=== PATIENT | male | born 1965 | race Caucasian/White ===

== ENCOUNTER 2022-10-31 11:23 | Emergency (ER) | payer SELFPAY ==
[2022-10-31] MEDS ORDERED: Sodium Chloride 0.9% 10 ML Syringe FLUSH PRN (11:31)
[2022-10-31 11:49] LABS: BASOPHILS ABSOLUTE AUTO 0.04 K/mm3 (0.01-0.08); BASOPHILS PERCENT AUTO 0.5 % (0.1-1.2); EOSINOPHILS ABSOLUTE AUTO 0.12 K/mm3 (0.04-0.54); EOSINOPHILS PERCENT AUTO 1.6 (0.8-7.0); HEMATOCRIT 38.9 % (40.1-51.0); IMMATURE GRAN ABSOLUTE AUTO 0.01 K/mm3 (0.00-0.10); IMMATURE GRAN PERCENT AUTO 0.1 % (<=1.0); LYMPHOCYTES PERCENT AUTO 33.2 % (21.8-53.1); MEAN CORPUSCULAR HEMOGLOBIN 32.6 pg (25.7-32.2); MEAN CORPUSCULAR VOLUME 90.7 fl (79.0-92.2); MEAN PLATELET VOLUME 8.1 fl (9.4-12.3); MONOCYTES ABSOLUTE AUTO 0.54 K/mm3 (0.30-0.82); MONOCYTES PERCENT AUTO 7.2 % (5.3-12.2); NEUTROPHILS ABSOLUTE AUTO 4.32 K/mm3 (1.78-5.38); NEUTROPHILS PERCENT AUTO 57.4 % (34.0-67.9); PLATELET COUNT,PLT 375 K/mm3 (163-337); RED BLOOD CELL COUNT 4.29 M/mm3 (4.63-6.08); WHITE BLOOD CELL COUNT,WBC 7.53 K/mm3 (4.23-9.07)
[2022-10-31 12:11] LABS: ALBUMIN 3.3 g/dl (3.4-5.0); ANION GAP 15.5 (5-15); BILIRUBIN TOTAL 0.9 mg/dL (0.2-1.0); BUN/CREATININE RATIO 10.9 (14-18); C-REACTIVE PROTEIN 0.2 mg/dL (<1.0); CALCIUM 9.6 mg/dL (8.5-10.1); CREATININE 1.1 mg/dL (0.7-1.3); EST CRCL DRUG DOSING (CG) 80.34 mL/min; POTASSIUM,K 4.5 mEq/L (3.5-5.1)
[2022-10-31 12:45] LABS: A/G RATIO 0.9 (1-2); PROTEIN TOTAL,TP 7.1 g/dl (6.4-8.2)
[2022-10-31] MEDS ORDERED: Sodium Chloride 0.9% 1,000 ML IV STA (14:09)
[2022-10-31] MEDS ORDERED: Aspirin 81 MG Tab.Chew PO ONE (14:24)
[2022-10-31] MEDS ORDERED: Iopamidol 755 Mg/ML 100 ML Bottle IVPUSH ONE (14:47)
[2022-10-31] MEDS ORDERED: Sodium Chloride 0.9% 100 ML IV SCH (15:00)
== END 2022-10-31 15:39 ==
LOC: JD.ED 11:23
DX: I63.9 Cerebral infarction, unspecified (principal); E87.1 Hypo-osmolality and hyponatremia; F17.210 Nicotine dependence, cigarettes, uncomplicated; Z20.822 Contact with and (suspected) exposure to COVID-19
CPT/HCPCS: 36415; 70450; 70496; 70498; 80053; 80307; 85025; 86140; 87635; 93005; 99285; A9270; J3490; J7030; Q9967; 93010; U0002